=== PATIENT | male | born 1980 | race African-American/Black ===

== ENCOUNTER 2021-05-19 01:25 | Inpatient (IN) | payer MEDICAID ==
[~2021-05-19] VITALS: Ht 167.6 cm; Wt 84.9 kg
[2021-05-19] VITALS (9 sets, daily range): BP systolic 97–124; BP diastolic 52–78
[2021-05-19] MEDS ORDERED: SODIUM CHLORIDE 0.9% 1,000 ML IV ONE ×2 (02:15→04:30)
[2021-05-19 03:58] LABS: BASOPHILS % 0.2 % (0.0-2.0); CHLORIDE 109 mEq/L (98-107); EOSINOPHILS % 0.4 % (0.0-5.0); HEMATOCRIT. 22.3 % (42.0-52.0); HEMOGLOBIN. 7.2 g/dL (14.0-18.0); LYMPHOCYTES % 19.4 % (20.0-50.0); MEAN CORPUSCULAR VOLUME 83.7 fL (80.0-94.0); MEAN PLATELET VOLUME 6.6 fl (7.4-10.4); MONOCYTES % 5.9 % (2.0-8.0); NEUTROPHILS % 74.1 % (40.0-76.0); PLATELET 506 x1000/uL (130-400); RED BLOOD CELL COUNT 2.66 mill/uL (4.7-6.1); RED CELL DISTRIBUTION WIDTH 18.2 % (11.6-14.6)
[2021-05-19] MEDS ORDERED: VANCOMYCIN 1G PREMIX 200 ML IV SCH (04:30)
[2021-05-19] MEDS ORDERED: PIPERACILLIN/TAZOBACTAM 3.375GM/50ML PREMIX IV SCH (04:30)
[2021-05-19 06:28] LABS: CLARITY URINE CLOUDY (CLEAR); COLOR URINE YELLOW (YELLOW); KETONES URINE TRACE (NEGATIVE); LEUKOCYTE ESTERASE URINE 2+ (NEGATIVE); NITRITE URINE NEGATIVE (NEGATIVE); OCCULT BLOOD URINE 1+ (NEGATIVE); PROTEIN URINE 2+ (NEGATIVE); SPECIFIC GRAVITY URINE 1.022 (1.005-1.030)
[2021-05-19] MEDS ORDERED: ONDANSETRON HCL 4MG/2ML INJ IV PRN (11:15)
[2021-05-19] MEDS ORDERED: ENOXAPARIN 40MG/0.4ML SYR SUBCUT SCH (11:15)
[2021-05-19] MEDS ORDERED: DIPHENHYDRAMINE 50MG/ML VIAL IV PRN (11:15)
[2021-05-19] MEDS ORDERED: LEVOFLOXACIN 500MG PREMIX 100 ML IV SCH (11:30)
[2021-05-19] MEDS: DEXT 5%/0.45% NACL 1000ML 1,000 ML IV SCH ×2 (11:30→23:01)
[2021-05-19] MEDS ORDERED: SILO8CAP6 PO (17:32)
[2021-05-19] MEDS ORDERED: MIRT-89 PO (17:32)
[2021-05-19] MEDS ORDERED: METF-414 PO (17:32)
[2021-05-19] MEDS ORDERED: LABE200T9 PO (17:32)
[2021-05-19] MEDS ORDERED: BACL-141 PO (17:32)
[2021-05-19] MEDS ORDERED: NIFE30TA94 PO (17:32)
[2021-05-20] VITALS (15 sets, daily range): BP systolic 108–134; BP diastolic 62–78
[2021-05-20 08:18] LABS: CHLORIDE 117 mEq/L (98-107)
[2021-05-20 08:26] LABS: BASOPHILS % 0.3 % (0.0-2.0); EOSINOPHILS % 0.8 % (0.0-5.0); LYMPHOCYTES % 31.4 % (20.0-50.0); MEAN CORPUSCULAR HEMOGLOBIN 26.9 pg (28.0-32.0); MEAN CORPUSCULAR VOLUME 84.7 fL (80.0-94.0); MEAN PLATELET VOLUME 6.7 fl (7.4-10.4); MONOCYTES % 8.5 % (2.0-8.0); PLATELET 387 x1000/uL (130-400); RED BLOOD CELL COUNT 2.39 mill/uL (4.7-6.1); RED CELL DISTRIBUTION WIDTH 18.4 % (11.6-14.6)
[2021-05-20 08:32] LABS: HEMATOCRIT. 20.2 % (42.0-52.0); HEMOGLOBIN. 6.4 g/dL (14.0-18.0)
[2021-05-20] MEDS: DEXT 5%/0.45% NACL 1000ML 1,000 ML IV SCH ×2 (09:43→17:51)
[2021-05-20] MEDS ORDERED: POTASSIUM CHLORIDE INJ 40 MEQ in DEXT 5% WATER 250 ML IV ONE (10:00)
[2021-05-20] MEDS: PANTOPRAZOLE SODIUM 40 MG/VIAL IV SCH (11:30)
[2021-05-20] MEDS: KCL 20MEQ/100ML X 2 FOR TOTAL KCL 40MEQ/200ML IV SCH ×2 (13:24→17:12)
[2021-05-20] MEDS: LEVOFLOXACIN 500MG PREMIX 100 ML IV SCH (15:15)
[2021-05-20] MEDS: SODIUM HYPOCHLORITE 0.125% 473ML SOLUTION TOP SCH (20:58)
[2021-05-20 21:58] LABS: HEMATOCRIT 21.8 % (42.0-52.0); HEMOGLOBIN 7.2 g/dL (14.0-18.0)
[2021-05-21] VITALS (12 sets, daily range): BP systolic 89–158; BP diastolic 50–78
[2021-05-21] MEDS: DEXT 5%/0.45% NACL 1000ML 1,000 ML IV SCH ×3 (03:30→23:32)
[2021-05-21 06:50] LABS: BASOPHILS % 0.4 % (0.0-2.0); EOSINOPHILS % 0.4 % (0.0-5.0); HEMATOCRIT. 21.6 % (42.0-52.0); HEMOGLOBIN. 7.3 g/dL (14.0-18.0); LYMPHOCYTES % 36.7 % (20.0-50.0); MEAN CORPUSCULAR HEMOGLOBIN 28.7 pg (28.0-32.0); MEAN CORPUSCULAR VOLUME 85.5 fL (80.0-94.0); MEAN PLATELET VOLUME 6.4 fl (7.4-10.4); MONOCYTES % 7.5 % (2.0-8.0); PLATELET 292 x1000/uL (130-400); RED BLOOD CELL COUNT 2.53 mill/uL (4.7-6.1); RED CELL DISTRIBUTION WIDTH 17.9 % (11.6-14.6)
[2021-05-21 07:10] LABS: CHLORIDE 120 mEq/L (98-107)
[2021-05-21 07:24] LABS: PHOSPHORUS 2.3 mg/dL (2.5-4.9)
[2021-05-21] MEDS: PANTOPRAZOLE SODIUM 40 MG/VIAL IV SCH (09:55)
[2021-05-21] MEDS: SODIUM HYPOCHLORITE 0.125% 473ML SOLUTION TOP SCH (09:55)
[2021-05-21] MEDS ORDERED: POTASSIUM PHOS,M-BASIC-D-BASIC 20 MMOL in DEXT 5% WATER 243.3333 ML IV ONE (11:00)
[2021-05-21] MEDS: LEVOFLOXACIN 500MG PREMIX 100 ML IV SCH (11:35)
[2021-05-21] MEDS ORDERED: CEFTRIAXONE 1 G PREMIX 50 ML IV SCH (23:15)
[2021-05-21] MEDS: CEFTRIAXONE 1,000 MG in DEXTROSE 5% WATER 50 ML IV SCH (23:40)
[2021-05-22] VITALS: BP 111/75
[2021-05-22 04:00] VITALS: BP 108/78
[2021-05-22 08:00] VITALS: BP 115/77
[2021-05-22] MEDS: PANTOPRAZOLE SODIUM 40 MG/VIAL IV SCH (09:34)
[2021-05-22] MEDS: SODIUM HYPOCHLORITE 0.125% 473ML SOLUTION TOP SCH (09:34)
[2021-05-22] MEDS: DEXT 5%/0.45% NACL 1000ML 1,000 ML IV SCH ×2 (09:34→20:20)
[2021-05-22 12:00] VITALS: BP 105/71
[2021-05-22] MEDS ORDERED: POTASSIUM CHLORIDE INJ 40 MEQ in DEXT 5% WATER 500 ML IV NR (13:00)
[2021-05-22 16:00] VITALS: BP 103/68
[2021-05-22 20:00] VITALS: BP 133/82
[2021-05-22] MEDS: CEFTRIAXONE 1,000 MG in DEXTROSE 5% WATER 50 ML IV SCH (20:20)
[2021-05-23] VITALS: BP_SYST 132; BP_SYST 147; BP_DIAS 83
[2021-05-23 04:00] VITALS: BP 130/86
[2021-05-23] MEDS: DEXT 5%/0.45% NACL 1000ML 1,000 ML IV SCH (05:04)
[2021-05-23 08:00] VITALS: BP 117/71
[2021-05-23] MEDS: PANTOPRAZOLE SODIUM 40 MG/VIAL IV SCH (08:32)
[2021-05-23] MEDS: SODIUM HYPOCHLORITE 0.125% 473ML SOLUTION TOP SCH (08:32)
[2021-05-23 12:19] VITALS: BP 115/91
[2021-05-23] MEDS ORDERED: DEXT 5%/0.45% NACL 1000ML 1,000 ML IV SCH (13:48)
[2021-05-23 16:00] VITALS: BP 144/98
[2021-05-23 20:20] VITALS: BP_SYST 111; BP_SYST 143; BP_DIAS 61; BP_DIAS 81
[2021-05-23] MEDS: CEFTRIAXONE 1,000 MG in DEXTROSE 5% WATER 50 ML IV SCH (20:56)
[2021-05-24] VITALS (10 sets, daily range): BP systolic 99–131; BP diastolic 64–81
[2021-05-24] MEDS: PANTOPRAZOLE SODIUM 40 MG/VIAL IV SCH (08:20)
[2021-05-24] MEDS: ASCORBIC ACID 500 MG TABLET PO SCH (08:20)
[2021-05-24] MEDS: ZINC SULFATE 220 MG ( 50 ) CAPSULE PO SCH (08:21)
[2021-05-24] MEDS: SODIUM HYPOCHLORITE 0.125% 473ML SOLUTION TOP SCH (08:26)
[2021-05-24 11:15] LABS: BASOPHILS % 0.2 % (0.0-2.0); EOSINOPHILS % 0.3 % (0.0-5.0); MEAN CORPUSCULAR HEMOGLOBIN 28.3 pg (28.0-32.0); MEAN CORPUSCULAR VOLUME 85.5 fL (80.0-94.0); MEAN PLATELET VOLUME 6.9 fl (7.4-10.4); MONOCYTES % 4.3 % (2.0-8.0); NEUTROPHILS % 77.2 % (40.0-76.0); PLATELET 173 x1000/uL (130-400); RED BLOOD CELL COUNT 2.46 mill/uL (4.7-6.1); RED CELL DISTRIBUTION WIDTH 18.4 % (11.6-14.6)
[2021-05-24 11:35] LABS: CHLORIDE 110 mEq/L (98-107); HEMOGLOBIN. 6.9 g/dL (14.0-18.0)
[2021-05-24 11:41] LABS: TOTAL IRON BINDING CAPACITY 101 ug/dL (250-450)
[2021-05-24] MEDS ORDERED: IRON SUCROSE COMPLEX 100 MG/5 ML ML IV SCH (15:00)
[2021-05-24] MEDS: ACETAMINOPHEN 325MG TABLET PO PRN (15:56)
[2021-05-25] VITALS (11 sets, daily range): BP systolic 98–131; BP diastolic 63–76
[2021-05-25] MEDS: CEFTRIAXONE 1,000 MG in DEXTROSE 5% WATER 50 ML IV SCH ×2 (00:33→21:47)
[2021-05-25] MEDS: ASCORBIC ACID 500 MG TABLET PO SCH (09:40)
[2021-05-25] MEDS: PANTOPRAZOLE SODIUM 40 MG/VIAL IV SCH (09:40)
[2021-05-25] MEDS: ZINC SULFATE 220 MG ( 50 ) CAPSULE PO SCH (09:40)
[2021-05-25] MEDS: SODIUM HYPOCHLORITE 0.125% 473ML SOLUTION TOP SCH (09:40)
[2021-05-25 09:56] LABS: BASOPHILS % 0.3 % (0.0-2.0); EOSINOPHILS % 1.3 % (0.0-5.0); HEMATOCRIT. 25.2 % (42.0-52.0); HEMOGLOBIN. 8.4 g/dL (14.0-18.0); LYMPHOCYTES % 35.8 % (20.0-50.0); MEAN CORPUSCULAR HEMOGLOBIN 28.7 pg (28.0-32.0); MEAN PLATELET VOLUME 7.2 fl (7.4-10.4); MONOCYTES % 7.1 % (2.0-8.0); NEUTROPHILS % 55.5 % (40.0-76.0); PLATELET 151 x1000/uL (130-400); RED BLOOD CELL COUNT 2.93 mill/uL (4.7-6.1); RED CELL DISTRIBUTION WIDTH 17.7 % (11.6-14.6)
[2021-05-25] MEDS ORDERED: SODIUM CHLORIDE 0.9% 500 ML IV ONE (23:15)
[2021-05-26] VITALS: BP 110/73
[2021-05-26] MEDS: ACETAMINOPHEN 325MG TABLET PO PRN (00:30)
[2021-05-26] MEDS: SODIUM CHLORIDE 0.9% 1,000 ML IV SCH ×3 (00:31→21:20)
[2021-05-26 04:00] VITALS: BP 105/70
[2021-05-26 08:00] VITALS: BP 115/78
[2021-05-26] MEDS: ASCORBIC ACID 500 MG TABLET PO SCH (08:23)
[2021-05-26] MEDS: SODIUM HYPOCHLORITE 0.125% 473ML SOLUTION TOP SCH (08:23)
[2021-05-26] MEDS: PANTOPRAZOLE SODIUM 40 MG/VIAL IV SCH (08:23)
[2021-05-26] MEDS: ZINC SULFATE 220 MG ( 50 ) CAPSULE PO SCH (08:23)
[2021-05-26 12:00] VITALS: BP 111/69
[2021-05-26] MEDS ORDERED: IRON SUCROSE COMPLEX 100 MG/5 ML ML IV NR (14:45)
[2021-05-26 16:00] VITALS: BP 113/73
[2021-05-26 20:00] VITALS: BP 91/51
[2021-05-27] VITALS: BP 108/67
[2021-05-27 04:00] VITALS: BP 102/71
[2021-05-27] MEDS: SODIUM CHLORIDE 0.9% 1,000 ML IV SCH ×2 (06:35→16:22)
[2021-05-27 08:00] VITALS: BP 108/66
[2021-05-27] MEDS: ASCORBIC ACID 500 MG TABLET PO SCH (08:39)
[2021-05-27] MEDS: ZINC SULFATE 220 MG ( 50 ) CAPSULE PO SCH (08:39)
[2021-05-27] MEDS: PANTOPRAZOLE SODIUM 40 MG/VIAL IV SCH (08:39)
[2021-05-27] MEDS: SODIUM HYPOCHLORITE 0.125% 473ML SOLUTION TOP SCH (08:39)
[2021-05-27 12:00] VITALS: BP 108/69
[2021-05-27 16:00] VITALS: BP 115/69
[2021-05-27 20:00] VITALS: BP 121/74
[2021-05-28] VITALS: BP 114/74
[2021-05-28 04:00] VITALS: BP 119/68
[2021-05-28] MEDS: SODIUM CHLORIDE 0.9% 1,000 ML IV SCH ×3 (04:36→22:16)
[2021-05-28 08:00] VITALS: BP 103/66
[2021-05-28] MEDS: ZINC SULFATE 220 MG ( 50 ) CAPSULE PO SCH (09:18)
[2021-05-28] MEDS: ASCORBIC ACID 500 MG TABLET PO SCH (09:18)
[2021-05-28] MEDS: SODIUM HYPOCHLORITE 0.125% 473ML SOLUTION TOP SCH (09:19)
[2021-05-28] MEDS: PANTOPRAZOLE SODIUM 40 MG/VIAL IV SCH (09:30)
[2021-05-28 12:00] VITALS: BP 122/77
[2021-05-28 16:00] VITALS: BP 107/62
[2021-05-28 20:00] VITALS: BP 117/76
[2021-05-29] VITALS: BP 126/80
[2021-05-29 04:00] VITALS: BP 105/68
[2021-05-29] MEDS: SODIUM CHLORIDE 0.9% 1,000 ML IV SCH ×2 (06:05→20:37)
[2021-05-29 08:00] VITALS: BP 111/71
[2021-05-29] MEDS: ASCORBIC ACID 500 MG TABLET PO SCH (08:24)
[2021-05-29] MEDS: ZINC SULFATE 220 MG ( 50 ) CAPSULE PO SCH (08:24)
[2021-05-29] MEDS: PANTOPRAZOLE SODIUM 40 MG/VIAL IV SCH (08:24)
[2021-05-29] MEDS: SODIUM HYPOCHLORITE 0.125% 473ML SOLUTION TOP SCH (08:24)
[2021-05-29 12:00] VITALS: BP 114/63
[2021-05-29 16:00] VITALS: BP 124/75
[2021-05-29 20:15] VITALS: BP 128/78
[2021-05-30 00:28] VITALS: BP 120/78
[2021-05-30] MEDS: SODIUM CHLORIDE 0.9% 1,000 ML IV SCH ×2 (03:26→18:14)
[2021-05-30 04:47] VITALS: BP 113/69
[2021-05-30 08:00] VITALS: BP 107/67
[2021-05-30] MEDS: ZINC SULFATE 220 MG ( 50 ) CAPSULE PO SCH (09:14)
[2021-05-30] MEDS: ASCORBIC ACID 500 MG TABLET PO SCH (09:14)
[2021-05-30] MEDS: PANTOPRAZOLE SODIUM 40 MG/VIAL IV SCH (09:14)
[2021-05-30] MEDS: SODIUM HYPOCHLORITE 0.125% 473ML SOLUTION TOP SCH (09:15)
[2021-05-30 12:00] VITALS: BP 110/74
[2021-05-30 16:00] VITALS: BP 102/53
[2021-05-30 20:00] VITALS: BP 106/65
[2021-05-31] VITALS: BP 130/70
[2021-05-31] MEDS: ACETAMINOPHEN 325MG TABLET PO PRN (00:36)
[2021-05-31] MEDS: SODIUM CHLORIDE 0.9% 1,000 ML IV SCH ×3 (00:36→18:19)
[2021-05-31 04:00] VITALS: BP 103/62
[2021-05-31] MEDS: ASCORBIC ACID 500 MG TABLET PO SCH (08:18)
[2021-05-31] MEDS: ZINC SULFATE 220 MG ( 50 ) CAPSULE PO SCH (08:18)
[2021-05-31] MEDS: SODIUM HYPOCHLORITE 0.125% 473ML SOLUTION TOP SCH (08:18)
[2021-05-31] MEDS: PANTOPRAZOLE SODIUM 40 MG/VIAL IV SCH (08:18)
[2021-05-31 12:00] VITALS: BP 103/62
[2021-05-31 16:00] VITALS: BP 109/71
[2021-05-31 20:00] VITALS: BP 112/64
[2021-06-01] VITALS (7 sets, daily range): BP systolic 100–114; BP diastolic 54–74
[2021-06-01] MEDS: SODIUM CHLORIDE 0.9% 1,000 ML IV SCH ×2 (05:05→15:33)
[2021-06-01] MEDS: ZINC SULFATE 220 MG ( 50 ) CAPSULE PO SCH (09:04)
[2021-06-01] MEDS: ASCORBIC ACID 500 MG TABLET PO SCH (09:04)
[2021-06-01] MEDS: SODIUM HYPOCHLORITE 0.125% 473ML SOLUTION TOP SCH (09:04)
[2021-06-01] MEDS: PANTOPRAZOLE SODIUM 40 MG/VIAL IV SCH (09:04)
[2021-06-01] MEDS: PROPRANOLOL HCL 10MG TABLET PO SCH ×2 (12:33→21:22)
[2021-06-02] VITALS: BP 91/52
[2021-06-02 04:00] VITALS: BP 98/54
[2021-06-02] MEDS: PROPRANOLOL HCL 10MG TABLET PO SCH ×3 (05:16→21:04)
[2021-06-02 08:00] VITALS: BP_SYST 135; BP_SYST 92; BP_DIAS 54; BP_DIAS 55
[2021-06-02] MEDS: PANTOPRAZOLE SODIUM 40 MG/VIAL IV SCH (10:50)
[2021-06-02] MEDS: ZINC SULFATE 220 MG ( 50 ) CAPSULE PO SCH (10:50)
[2021-06-02] MEDS: ASCORBIC ACID 500 MG TABLET PO SCH (10:50)
[2021-06-02] MEDS: SODIUM HYPOCHLORITE 0.125% 473ML SOLUTION TOP SCH (10:51)
[2021-06-02 12:00] VITALS: BP 102/70
[2021-06-02] MEDS: SODIUM CHLORIDE 0.9% 1,000 ML IV SCH (13:33)
[2021-06-02 16:00] VITALS: BP 107/71
[2021-06-02 20:00] VITALS: BP 148/90
[2021-06-03] VITALS: BP 116/76
[2021-06-03 04:00] VITALS: BP 103/69
[2021-06-03 08:00] VITALS: BP 97/59
[2021-06-03] MEDS: SODIUM HYPOCHLORITE 0.125% 473ML SOLUTION TOP SCH (09:00)
[2021-06-03] MEDS: ZINC SULFATE 220 MG ( 50 ) CAPSULE PO SCH (09:27)
[2021-06-03] MEDS: ASCORBIC ACID 500 MG TABLET PO SCH (09:27)
[2021-06-03] MEDS: PANTOPRAZOLE SODIUM 40 MG/VIAL IV SCH (09:27)
[2021-06-03] MEDS: SODIUM CHLORIDE 0.9% 1,000 ML IV SCH ×2 (09:52→17:04)
[2021-06-03 12:00] VITALS: BP 106/69
[2021-06-03] MEDS: PROPRANOLOL HCL 10MG TABLET PO SCH ×2 (13:01→22:00)
[2021-06-03] MEDS ORDERED: LOPERAMIDE HCL 2MG CAPSULE PO NR (15:00)
[2021-06-03 16:00] VITALS: BP 101/20
[2021-06-03 20:00] VITALS: BP 103/65
[2021-06-04] VITALS: BP 103/66
[2021-06-04 04:00] VITALS: BP 94/58
[2021-06-04] MEDS: SODIUM CHLORIDE 0.9% 1,000 ML IV SCH ×3 (05:00→23:59)
[2021-06-04] MEDS: PROPRANOLOL HCL 10MG TABLET PO SCH ×3 (06:07→22:37)
[2021-06-04 08:00] VITALS: BP 97/65
[2021-06-04] MEDS: ASCORBIC ACID 500 MG TABLET PO SCH (08:51)
[2021-06-04] MEDS: PANTOPRAZOLE SODIUM 40 MG/VIAL IV SCH (08:51)
[2021-06-04] MEDS: ZINC SULFATE 220 MG ( 50 ) CAPSULE PO SCH (08:51)
[2021-06-04 12:00] VITALS: BP 113/71
[2021-06-04 16:00] VITALS: BP 107/62
[2021-06-04 20:00] VITALS: BP 131/79
[2021-06-05 04:00] VITALS: BP 96/50
[2021-06-05] MEDS: PROPRANOLOL HCL 10MG TABLET PO SCH ×2 (06:57→20:21)
[2021-06-05 08:00] VITALS: BP 98/50
[2021-06-05] MEDS: PANTOPRAZOLE SODIUM 40 MG/VIAL IV SCH (09:17)
[2021-06-05] MEDS: ASCORBIC ACID 500 MG TABLET PO SCH (09:17)
[2021-06-05] MEDS: SODIUM CHLORIDE 0.9% 1,000 ML IV SCH ×2 (09:17→19:59)
[2021-06-05] MEDS: ZINC SULFATE 220 MG ( 50 ) CAPSULE PO SCH (09:17)
[2021-06-05 12:00] VITALS: BP 98/61
[2021-06-05] MEDS ORDERED: LOPERAMIDE HCL 2MG CAPSULE PO PRN (14:45)
[2021-06-05 16:00] VITALS: BP 100/55
[2021-06-05 20:00] VITALS: BP 117/67
[2021-06-06] VITALS (8 sets, daily range): BP systolic 98–121; BP diastolic 57–80
[2021-06-06] MEDS: ZINC SULFATE 220 MG ( 50 ) CAPSULE PO SCH (08:56)
[2021-06-06] MEDS: SODIUM HYPOCHLORITE 0.125% 473ML SOLUTION TOP SCH ×2 (08:58→17:00)
[2021-06-06] MEDS: PROPRANOLOL HCL 10MG TABLET PO SCH (08:58)
[2021-06-06] MEDS: ASCORBIC ACID 500 MG TABLET PO SCH (08:58)
[2021-06-06 16:36] LABS: BASOPHILS % 0.3 % (0.0-2.0); EOSINOPHILS % 0.6 % (0.0-5.0); LYMPHOCYTES % 16.9 % (20.0-50.0); MEAN CORPUSCULAR HEMOGLOBIN 29.5 pg (28.0-32.0); MEAN CORPUSCULAR VOLUME 95.6 fL (80.0-94.0); MEAN PLATELET VOLUME 7.3 fl (7.4-10.4); MONOCYTES % 4.6 % (2.0-8.0); NEUTROPHILS % 77.6 % (40.0-76.0); PLATELET 205 x1000/uL (130-400); RED BLOOD CELL COUNT 2.13 mill/uL (4.7-6.1)
[2021-06-06 16:41] LABS: HEMATOCRIT. 20.4 % (42.0-52.0); HEMOGLOBIN. 6.3 g/dL (14.0-18.0)
[2021-06-06 16:47] LABS: CHLORIDE 114 mEq/L (98-107)
[2021-06-06] MEDS: SODIUM CHLORIDE 0.9% 1,000 ML IV SCH (16:59)
[2021-06-06] MEDS ORDERED: POTASSIUM CHLORIDE 20MEQ/PACKET PO NR (18:00)
[2021-06-06 18:48] LABS: TOTAL IRON BINDING CAPACITY 48 ug/dL (250-450)
[2021-06-06] MEDS: PANTOPRAZOLE SODIUM 40 MG/VIAL IV SCH (19:41)
[2021-06-07] VITALS (11 sets, daily range): BP systolic 97–134; BP diastolic 66–83
[2021-06-07] MEDS: SODIUM CHLORIDE 0.9% 1,000 ML IV SCH ×2 (01:59→11:59)
[2021-06-07 04:00] LABS: INR 1.4; PROTHROMBIN TIME 15.1 sec (9.6-11.0)
[2021-06-07] MEDS: SODIUM HYPOCHLORITE 0.125% 473ML SOLUTION TOP SCH ×3 (10:33→17:17)
[2021-06-07] MEDS: PANTOPRAZOLE SODIUM 40 MG/VIAL IV SCH (10:34)
[2021-06-07] MEDS: ZINC SULFATE 220 MG ( 50 ) CAPSULE PO SCH (10:34)
[2021-06-07] MEDS: ASCORBIC ACID 500 MG TABLET PO SCH (10:34)
[2021-06-07 11:55] LABS: HEMATOCRIT 23.3 % (42.0-52.0); HEMOGLOBIN 7.3 g/dL (14.0-18.0); MEAN CORPUSCULAR HEMOGLOBIN 29.3 pg (28.0-32.0); MEAN CORPUSCULAR VOLUME 93.6 fL (80.0-94.0); PLATELET 183 x1000/uL (130-400); RED BLOOD CELL COUNT 2.49 mill/uL (4.7-6.1); RED CELL DISTRIBUTION WIDTH 18.3 % (11.6-14.6)
[2021-06-07] MEDS ORDERED: IRON SUCROSE COMPLEX 100 MG/5 ML ML IV NR (15:00)
[2021-06-07] MEDS ORDERED: DIATR MEGLU/DIATRIZOATE SOLN 30ML PO NR (16:00)
[2021-06-07] MEDS: FERROUS SULFATE 325MG TABLET PO SCH (17:16)
[2021-06-08] VITALS (7 sets, daily range): BP systolic 90–109; BP diastolic 58–72
[2021-06-08] MEDS: SODIUM CHLORIDE 0.9% 1,000 ML IV SCH ×3 (01:35→22:00)
[2021-06-08 03:24] LABS: HEMATOCRIT 22.6 % (42.0-52.0); HEMOGLOBIN 7.3 g/dL (14.0-18.0)
[2021-06-08 03:37] LABS: INR 1.4; PROTHROMBIN TIME 14.9 sec (9.6-11.0)
[2021-06-08] MEDS: ASCORBIC ACID 500 MG TABLET PO SCH (09:29)
[2021-06-08] MEDS: PANTOPRAZOLE SODIUM 40 MG/VIAL IV SCH (09:29)
[2021-06-08] MEDS: SODIUM HYPOCHLORITE 0.125% 473ML SOLUTION TOP SCH (09:29)
[2021-06-08] MEDS: ZINC SULFATE 220 MG ( 50 ) CAPSULE PO SCH (09:29)
[2021-06-08] MEDS: FERROUS SULFATE 325MG TABLET PO SCH (09:29)
[2021-06-08 13:19] LABS: BASOPHILS % 0.2 % (0.0-2.0); EOSINOPHILS % 0.6 % (0.0-5.0); HEMATOCRIT. 24.2 % (42.0-52.0); HEMOGLOBIN. 7.9 g/dL (14.0-18.0); LYMPHOCYTES % 25.2 % (20.0-50.0); MEAN CORPUSCULAR HEMOGLOBIN 30.1 pg (28.0-32.0); MEAN CORPUSCULAR VOLUME 92.4 fL (80.0-94.0); MEAN PLATELET VOLUME 7.4 fl (7.4-10.4); MONOCYTES % 5.4 % (2.0-8.0); NEUTROPHILS % 68.6 % (40.0-76.0); PLATELET 210 x1000/uL (130-400); RED BLOOD CELL COUNT 2.62 mill/uL (4.7-6.1)
[2021-06-08] MEDS ORDERED: CEFEPIME 2,000 MG in DEXT 5% WATER 100 ML IV SCH (15:30)
[2021-06-08] MEDS ORDERED: VANCOMYCIN 1GM PMX (XELLIA) 200 ML IV NR ×2 (15:30→20:00)
[2021-06-08] MEDS ORDERED: PROPOFOL 200MG/20ML VIAL IV ONE (15:32)
[2021-06-08] MEDS ORDERED: MIDAZOLAM HCL 2 MG/2 ML VIAL ONE (15:46)
[2021-06-08] MEDS ORDERED: CEFAZOLIN SODIUM 1000MG/VIAL ONE (15:50)
[2021-06-08] MEDS ORDERED: DEXAMETHASONE 4MG/ML 1ML VIAL ONE (15:50)
[2021-06-08] MEDS ORDERED: ONDANSETRON HCL 4MG/2ML INJ ONE (15:50)
[2021-06-08] MEDS ORDERED: LIDOCAINE HCL 1% 10 MG/ML 10ML VIAL ONE (15:50)
[2021-06-08] MEDS ORDERED: SUCCINYLCHOLINE CHLORIDE 200MG/10ML IV ONE (15:50)
[2021-06-08] MEDS ORDERED: FENTANYL CITRATE/PF 50MCG/ML 2ML VIAL ONE (15:51)
[2021-06-08] MEDS ORDERED: FENTANYL CITRATE/PF 50MCG/ML 2ML VIAL IV PRN (15:51)
[2021-06-08] MEDS: CEFEPIME 2,000 MG in DEXT 5% WATER 100 ML IV SCH ×2 (18:24→22:10)
[2021-06-08] MEDS ORDERED: SODIUM CHLORIDE 0.9% 500 ML IV ONE (18:47)
[2021-06-08] MEDS ORDERED: SODIUM CHLORIDE 0.9% 500 ML IV NR (19:00)
[2021-06-09] VITALS (12 sets, daily range): BP systolic 95–131; BP diastolic 64–95
[2021-06-09] MEDS ORDERED: VANCOMYCIN 750MG PMX (XELLIA) 150 ML IV SCH
[2021-06-09] MEDS: SODIUM CHLORIDE 0.9% 1,000 ML IV SCH ×2 (03:59→13:53)
[2021-06-09] MEDS: VANCOMYCIN 750MG PMX (XELLIA) 150 ML IV SCH ×3 (05:51→21:14)
[2021-06-09] MEDS: PANTOPRAZOLE SODIUM 40 MG/VIAL IV SCH (08:32)
[2021-06-09] MEDS: ZINC SULFATE 220 MG ( 50 ) CAPSULE PO SCH (08:32)
[2021-06-09] MEDS: ASCORBIC ACID 500 MG TABLET PO SCH (08:32)
[2021-06-09] MEDS: FERROUS SULFATE 325MG TABLET PO SCH ×3 (08:32→18:51)
[2021-06-09] MEDS: CEFEPIME 2,000 MG in DEXT 5% WATER 100 ML IV SCH ×2 (08:32→20:12)
[2021-06-09] MEDS: SODIUM HYPOCHLORITE 0.125% 473ML SOLUTION TOP SCH ×3 (08:33→18:51)
[2021-06-09 12:39] LABS: BASOPHILS % 0.2 % (0.0-2.0); EOSINOPHILS % 0.6 % (0.0-5.0); HEMOGLOBIN. 8.6 g/dL (14.0-18.0); LYMPHOCYTES % 18.2 % (20.0-50.0); MEAN CORPUSCULAR HEMOGLOBIN 29.1 pg (28.0-32.0); MEAN CORPUSCULAR VOLUME 91.4 fL (80.0-94.0); MEAN PLATELET VOLUME 7.9 fl (7.4-10.4); MONOCYTES % 2.9 % (2.0-8.0); NEUTROPHILS % 78.1 % (40.0-76.0); PLATELET 184 x1000/uL (130-400); RED BLOOD CELL COUNT 2.96 mill/uL (4.7-6.1)
[2021-06-09 12:41] LABS: CHLORIDE 115 mEq/L (98-107)
[2021-06-09 12:48] LABS: PHOSPHORUS 2.1 mg/dL (2.5-4.9)
[2021-06-09] MEDS: ACETAMINOPHEN 325MG TABLET PO PRN (13:52)
[2021-06-09] MEDS ORDERED: MAGNESIUM 2 G PREMIX 50 ML IV NR (17:00)
[2021-06-09] MEDS ORDERED: POTASSIUM PHOS,M-BASIC-D-BASIC 20 MMOL in DEXT 5% WATER 243.3333 ML IV NR (17:00)
[2021-06-10] VITALS (12 sets, daily range): BP systolic 123–172; BP diastolic 67–107
[2021-06-10] MEDS: VANCOMYCIN 750MG PMX (XELLIA) 150 ML IV SCH (05:40)
[2021-06-10 06:20] LABS: CHLORIDE 115 mEq/L (98-107)
[2021-06-10 06:28] LABS: PHOSPHORUS 2.7 mg/dL (2.5-4.9)
[2021-06-10] MEDS: MEGESTROL ACETATE 400 MG/10 ML UDC PO SCH ×2 (09:24→18:23)
[2021-06-10] MEDS: SODIUM HYPOCHLORITE 0.125% 473ML SOLUTION TOP SCH ×3 (09:24→18:22)
[2021-06-10] MEDS: FERROUS SULFATE 325MG TABLET PO SCH ×3 (09:25→18:23)
[2021-06-10] MEDS: PANTOPRAZOLE SODIUM 40 MG/VIAL IV SCH (09:25)
[2021-06-10] MEDS: ASCORBIC ACID 500 MG TABLET PO SCH (09:25)
[2021-06-10] MEDS: CEFEPIME 2,000 MG in DEXT 5% WATER 100 ML IV SCH ×2 (09:25→20:11)
[2021-06-10] MEDS: ZINC SULFATE 220 MG ( 50 ) CAPSULE PO SCH (09:27)
[2021-06-10] MEDS: SODIUM CHLORIDE 0.9% 1,000 ML IV SCH ×2 (15:46)
[2021-06-10] MEDS: METOPROLOL TARTRATE 25MG TABLET PO SCH (20:10)
[2021-06-10] MEDS ORDERED: FUROSEMIDE 40MG/4ML VIAL IVP NR (21:30)
[2021-06-10] MEDS ORDERED: IOHEXOL-350 100 ML BOTTLE ONE (21:52)
[2021-06-11] VITALS (62 sets, daily range): BP systolic 49–156; BP diastolic 17–96
[2021-06-11] MEDS ORDERED: ENOXAPARIN 60MG/0.6ML SYR SUBCUT SCH (00:30)
[2021-06-11] MEDS: VANCOMYCIN 1GM PMX (XELLIA) 200 ML IV SCH ×2 (01:17→21:17)
[2021-06-11] MEDS: FERROUS SULFATE 325MG TABLET PO SCH ×3 (07:52→18:26)
[2021-06-11] MEDS: PANTOPRAZOLE SODIUM 40 MG/VIAL IV SCH (08:57)
[2021-06-11] MEDS: CEFEPIME 2,000 MG in DEXT 5% WATER 100 ML IV SCH ×2 (08:57→20:32)
[2021-06-11] MEDS: METOPROLOL TARTRATE 25MG TABLET PO SCH ×2 (08:58→21:26)
[2021-06-11] MEDS: ZINC SULFATE 220 MG ( 50 ) CAPSULE PO SCH (08:58)
[2021-06-11] MEDS: MEGESTROL ACETATE 400 MG/10 ML UDC PO SCH ×2 (09:00→18:26)
[2021-06-11] MEDS ORDERED: SODIUM CHLORIDE 0.9% 500 ML IV SCH (09:15)
[2021-06-11] MEDS ORDERED: VECURONIUM BROMIDE 10 MG/VIAL IV ONE (09:19)
[2021-06-11] MEDS ORDERED: ETOMIDATE 2MG/ML 10ML VIAL IV ONE (09:19)
[2021-06-11] MEDS ORDERED: SODIUM CHLORIDE 0.9% 10ML VIAL ONE (09:19)
[2021-06-11] MEDS ORDERED: SUCCINYLCHOLINE CHLORIDE 200MG/10ML IV ONE (09:19)
[2021-06-11] MEDS: SODIUM HYPOCHLORITE 0.125% 473ML SOLUTION TOP SCH ×3 (09:20→18:26)
[2021-06-11] MEDS: SODIUM CHLORIDE 0.9% 1,000 ML IV SCH (09:20)
[2021-06-11] MEDS: ASCORBIC ACID 500 MG TABLET PO SCH (09:20)
[2021-06-11 10:01] LABS: BG BASE EXCESS -14.8 mmol/L (-2.0-2.0); BG CARBOXYHEMOGLOBIN 0.1 % (0.5-1.5); BG DEOXYHEMOGLOBIN 4.1 % (0.0-5.0); BG FRACTION INSPIRED OXYGEN 40; BG HCO3 ACT 9.5 mmol/L (22.0-26.0); BG METHEMOGLOBIN 0.2 % (0.0-1.5); BG OXYGEN SATURATION 95.9 % (92.0-98.5); BG OXYHEMOGLOBIN 95.6 % (94.0-97.0); BG PCO2 19.1 mmHg (35.0-45.0); BG PH 7.316 (7.350-7.450); BG PO2 91.6 mmHg (75.0-100.0); BG SAMPLE SITE RIGHT RADIAL; BG TOTAL HEMOGLOBIN 9.2 g/dL (12.0-18.0); BG TOTAL RESPIRATORY RATE 29 b/min; BG VENT MODE MASK - BIPAP
[2021-06-11] MEDS: IPRATROPIUM/ALBUTEROL 0.5-3(2.5)MG/3ML NEB HHN PRN ×2 (12:41→14:01)
[2021-06-11] MEDS: SODIUM BICARBONATE 100 MEQ in SODIUM CHLORIDE 0.45% 1,000 ML IV SCH (13:00)
[2021-06-11] MEDS ORDERED: ACETYLCYSTEINE 100MG/ML 10% VIAL 4ML INH ONE (14:00)
[2021-06-11] MEDS: ACETYLCYSTEINE 100MG/ML 10% VIAL 4ML INH SCH (14:00)
[2021-06-11] MEDS ORDERED: NOREPINEPHRINE 8MG/250ML PMX 250 ML IV ONE (15:15)
[2021-06-11] MEDS ORDERED: PROPOFOL 10MG/ML 100ML 100 ML IV PRN (16:15)
[2021-06-11] MEDS: NOREPINEPHRINE 8 MG in DEXTROSE 5% WATER 250 ML IV PRN ×2 (16:31→19:12)
[2021-06-11] MEDS: FENTANYL 2500MCG/250ML PMX 250 ML IV PRN (16:52)
[2021-06-11 17:42] LABS: BG BASE EXCESS -21.1 mmol/L (-2.0-2.0); BG CARBOXYHEMOGLOBIN 0.7 % (0.5-1.5); BG DEOXYHEMOGLOBIN 3.8 % (0.0-5.0); BG FRACTION INSPIRED OXYGEN 100; BG HCO3 ACT 11.5 mmol/L (22.0-26.0); BG METHEMOGLOBIN 0.3 % (0.0-1.5); BG OXYGEN SATURATION 96.2 % (92.0-98.5); BG OXYHEMOGLOBIN 95.2 % (94.0-97.0); BG PCO2 59.7 mmHg (35.0-45.0); BG PH 6.901 (7.350-7.450); BG PO2 136.9 mmHg (75.0-100.0); BG SAMPLE SITE RIGHT RADIAL; BG TOTAL HEMOGLOBIN 10.8 g/dL (12.0-18.0); BG VENT MODE VENT - AC
[2021-06-11] MEDS: IPRATROPIUM/ALBUTEROL 0.5-3(2.5)MG/3ML NEB HHN SCH ×2 (18:08→20:00)
[2021-06-11] MEDS ORDERED: SODIUM BICARBONATE 8.4% 1 MEQ/ML 50ML SYR IV SCH (18:15)
[2021-06-11 20:43] LABS: BG BASE EXCESS -14.5 mmol/L (-2.0-2.0); BG CARBOXYHEMOGLOBIN 0.4 % (0.5-1.5); BG DEOXYHEMOGLOBIN 3.3 % (0.0-5.0); BG FRACTION INSPIRED OXYGEN 100; BG HCO3 ACT 14.2 mmol/L (22.0-26.0); BG METHEMOGLOBIN 0.3 % (0.0-1.5); BG OXYGEN SATURATION 96.7 % (92.0-98.5); BG PCO2 45.2 mmHg (35.0-45.0); BG PH 7.116 (7.350-7.450); BG PO2 117.8 mmHg (75.0-100.0); BG SAMPLE SITE RIGHT BRACHIAL; BG TOTAL HEMOGLOBIN 10.8 g/dL (12.0-18.0); BG VENT MODE VENT - AC
[2021-06-11 22:18] LABS: BG BASE EXCESS -16.7 mmol/L (-2.0-2.0); BG CARBOXYHEMOGLOBIN 0.6 % (0.5-1.5); BG DEOXYHEMOGLOBIN 3.3 % (0.0-5.0); BG FRACTION INSPIRED OXYGEN 100; BG HCO3 ACT 11.8 mmol/L (22.0-26.0); BG METHEMOGLOBIN 0.3 % (0.0-1.5); BG OXYGEN SATURATION 96.7 % (92.0-98.5); BG OXYHEMOGLOBIN 95.8 % (94.0-97.0); BG PCO2 37.7 mmHg (35.0-45.0); BG PH 7.113 (7.350-7.450); BG PO2 119.9 mmHg (75.0-100.0); BG SAMPLE SITE RIGHT BRACHIAL; BG TOTAL HEMOGLOBIN 10.6 g/dL (12.0-18.0); BG VENT MODE VENT - AC
[2021-06-11] MEDS: NOREPINEPHRINE 32 MG in DEXT 5% WATER 218 ML IV PRN (22:23)
[2021-06-11] MEDS ORDERED: SODIUM BICARBONATE 8.4% 1 MEQ/ML 50ML SYR IV NR (22:34)
[2021-06-12] VITALS (103 sets, daily range): BP systolic 68–156; BP diastolic 41–96
[2021-06-12] MEDS: IPRATROPIUM/ALBUTEROL 0.5-3(2.5)MG/3ML NEB HHN SCH ×6 (00:26→21:11)
[2021-06-12] MEDS: ACETYLCYSTEINE 100MG/ML 10% VIAL 4ML INH SCH ×3 (00:26→15:31)
[2021-06-12 01:18] LABS: BG BASE EXCESS -12.7 mmol/L (-2.0-2.0); BG CARBOXYHEMOGLOBIN 0.4 % (0.5-1.5); BG DEOXYHEMOGLOBIN 2.5 % (0.0-5.0); BG FRACTION INSPIRED OXYGEN 100; BG METHEMOGLOBIN 0.3 % (0.0-1.5); BG OXYGEN SATURATION 97.5 % (92.0-98.5); BG OXYHEMOGLOBIN 96.8 % (94.0-97.0); BG PCO2 29.6 mmHg (35.0-45.0); BG PH 7.262 (7.350-7.450); BG PO2 131.2 mmHg (75.0-100.0); BG SAMPLE SITE RIGHT BRACHIAL; BG TOTAL HEMOGLOBIN 10.5 g/dL (12.0-18.0); BG VENT MODE VENT - AC
[2021-06-12] MEDS: METRONIDAZOLE 500 MG PREMIX 100 ML IV SCH ×3 (02:20→18:49)
[2021-06-12 06:17] LABS: HEMOGLOBIN. 10.7 g/dL (14.0-18.0); MEAN CORPUSCULAR HEMOGLOBIN 30.1 pg (28.0-32.0); MEAN CORPUSCULAR VOLUME 92.8 fL (80.0-94.0); MEAN PLATELET VOLUME 8.9 fl (7.4-10.4); PLATELET 128 x1000/uL (130-400); RED BLOOD CELL COUNT 3.55 mill/uL (4.7-6.1); RED CELL DISTRIBUTION WIDTH 18.7 % (11.6-14.6)
[2021-06-12 06:24] LABS: CHLORIDE 111 mEq/L (98-107)
[2021-06-12] MEDS: SODIUM BICARBONATE 100 MEQ in SODIUM CHLORIDE 0.45% 1,000 ML IV SCH (06:39)
[2021-06-12 08:20] LABS: BG FRACTION INSPIRED OXYGEN 80; BG HCO3 ACT 11.2 mmol/L (22.0-26.0); BG METHEMOGLOBIN 0.3 % (0.0-1.5); BG OXYHEMOGLOBIN 95.7 % (94.0-97.0); BG PCO2 24.5 mmHg (35.0-45.0); BG PH 7.277 (7.350-7.450); BG PO2 100.3 mmHg (75.0-100.0); BG SAMPLE SITE LEFT RADIAL; BG TOTAL HEMOGLOBIN 10.3 g/dL (12.0-18.0); BG VENT MODE VENT - AC
[2021-06-12] MEDS: FERROUS SULFATE 325MG TABLET PO SCH ×3 (08:20→18:49)
[2021-06-12] MEDS: SODIUM HYPOCHLORITE 0.125% 473ML SOLUTION TOP SCH ×2 (09:00→12:55)
[2021-06-12] MEDS: ZINC SULFATE 220 MG ( 50 ) CAPSULE PO SCH (09:00)
[2021-06-12] MEDS: PANTOPRAZOLE SODIUM 40 MG/VIAL IV SCH (09:00)
[2021-06-12] MEDS: ASCORBIC ACID 500 MG TABLET PO SCH (09:00)
[2021-06-12] MEDS: METOPROLOL TARTRATE 25MG TABLET PO SCH ×2 (09:00→21:00)
[2021-06-12] MEDS: CEFEPIME 2,000 MG in DEXT 5% WATER 100 ML IV SCH ×2 (09:00→21:46)
[2021-06-12] MEDS: NOREPINEPHRINE 32 MG in DEXT 5% WATER 218 ML IV PRN ×2 (10:51→19:26)
[2021-06-12] MEDS ORDERED: SODIUM BICARBONATE 8.4% 1 MEQ/ML 50ML SYR IV SCH (11:15)
[2021-06-12] MEDS ORDERED: SODIUM BICARBONATE 8.4% 1 MEQ/ML 50ML SYR IV NR (12:00)
[2021-06-12 12:26] LABS: NUCLEATED RED BLOOD CELLS 1 /100 WBC
[2021-06-12 12:28] LABS: PLATELET ESTIMATE SLIGHTLY DECREASED
[2021-06-12] MEDS: SODIUM BICARBONATE 150 MEQ in SODIUM CHLORIDE 0.45% 1,000 ML IV SCH (13:53)
[2021-06-12] MEDS ORDERED: FUROSEMIDE 40MG/4ML VIAL IVP NR (15:00)
[2021-06-12] MEDS ORDERED: SODIUM HYPOCHLORITE 0.125% 473ML SOLUTION TOP SCH (16:00)
[2021-06-13] VITALS (93 sets, daily range): BP systolic 75–150; BP diastolic 31–93
[2021-06-13] MEDS: ACETYLCYSTEINE 100MG/ML 10% VIAL 4ML INH SCH ×2 (00:03→09:05)
[2021-06-13] MEDS: IPRATROPIUM/ALBUTEROL 0.5-3(2.5)MG/3ML NEB HHN SCH ×5 (00:03→20:13)
[2021-06-13] MEDS: NOREPINEPHRINE 32 MG in DEXT 5% WATER 218 ML IV PRN ×4 (02:06→22:58)
[2021-06-13] MEDS: METRONIDAZOLE 500 MG PREMIX 100 ML IV SCH ×3 (02:08→17:37)
[2021-06-13] MEDS: SODIUM BICARBONATE 150 MEQ in SODIUM CHLORIDE 0.45% 1,000 ML IV SCH (07:36)
[2021-06-13] MEDS: CEFEPIME 2,000 MG in DEXT 5% WATER 100 ML IV SCH ×2 (08:21→21:20)
[2021-06-13] MEDS: METOPROLOL TARTRATE 25MG TABLET PO SCH ×2 (08:38→21:00)
[2021-06-13] MEDS: PANTOPRAZOLE SODIUM 40 MG/VIAL IV SCH (08:38)
[2021-06-13] MEDS: ASCORBIC ACID 500 MG TABLET PO SCH (08:38)
[2021-06-13] MEDS: FERROUS SULFATE 325MG TABLET PO SCH ×3 (08:38→17:37)
[2021-06-13] MEDS: ZINC SULFATE 220 MG ( 50 ) CAPSULE PO SCH (08:38)
[2021-06-13] MEDS ORDERED: VANCOMYCIN 1GM PMX (XELLIA) 200 ML IV SCH (09:00)
[2021-06-13 09:06] LABS: CHLORIDE 112 mEq/L (98-107)
[2021-06-13 09:30] LABS: BG CARBOXYHEMOGLOBIN 0.2 % (0.5-1.5); BG FRACTION INSPIRED OXYGEN 80; BG HCO3 ACT 8.4 mmol/L (22.0-26.0); BG METHEMOGLOBIN 0.3 % (0.0-1.5); BG OXYHEMOGLOBIN 97.5 % (94.0-97.0); BG PCO2 19.5 mmHg (35.0-45.0); BG PH 7.251 (7.350-7.450); BG PO2 233.4 mmHg (75.0-100.0); BG SAMPLE SITE RIGHT RADIAL; BG TOTAL HEMOGLOBIN 9.6 g/dL (12.0-18.0); BG VENT MODE VENT - AC
[2021-06-13] MEDS: DEXTROSE 50% WATER 50ML SYRINGE IV NR ×4 (09:59→17:40)
[2021-06-13] MEDS ORDERED: SODIUM BICARBONATE 8.4% 1 MEQ/ML 50ML SYR IV NR (10:00)
[2021-06-13] MEDS: SODIUM BICARBONATE 150 MEQ in DEXTROSE 5% WATER 1,000 ML IV SCH (12:41)
[2021-06-13] MEDS: METOCLOPRAMIDE HCL 10MG/2ML VIAL IV SCH (17:37)
[2021-06-13] MEDS: FENTANYL 2500MCG/250ML PMX 250 ML IV PRN (18:18)
[2021-06-13] MEDS ORDERED: DEXTROSE 50% WATER 50ML SYRINGE IV PRN ×2 (20:30)
[2021-06-13] MEDS: DEXT 10% WATER 1,000 ML IV SCH (20:40)
[2021-06-14] VITALS (123 sets, daily range): BP systolic 67–166; BP diastolic 27–103
[2021-06-14] MEDS: IPRATROPIUM/ALBUTEROL 0.5-3(2.5)MG/3ML NEB HHN SCH ×6 (00:11→20:54)
[2021-06-14] MEDS: ACETYLCYSTEINE 100MG/ML 10% VIAL 4ML INH SCH ×3 (00:11→15:28)
[2021-06-14] MEDS: METOCLOPRAMIDE HCL 10MG/2ML VIAL IV SCH ×4 (00:21→18:35)
[2021-06-14] MEDS: METRONIDAZOLE 500 MG PREMIX 100 ML IV SCH ×3 (02:01→18:35)
[2021-06-14] MEDS: NOREPINEPHRINE 32 MG in DEXT 5% WATER 218 ML IV PRN ×4 (03:07→23:08)
[2021-06-14] MEDS: SODIUM BICARBONATE 150 MEQ in DEXTROSE 5% WATER 1,000 ML IV SCH ×3 (04:40→23:07)
[2021-06-14 06:33] LABS: CHLORIDE 108 mEq/L (98-107)
[2021-06-14 06:40] LABS: PHOSPHORUS 5.3 mg/dL (2.5-4.9)
[2021-06-14] MEDS: FERROUS SULFATE 325MG TABLET PO SCH ×3 (08:20→18:20)
[2021-06-14] MEDS: ZINC SULFATE 220 MG ( 50 ) CAPSULE PO SCH (09:00)
[2021-06-14] MEDS: METOPROLOL TARTRATE 25MG TABLET PO SCH ×2 (09:00→21:00)
[2021-06-14] MEDS: ASCORBIC ACID 500 MG TABLET PO SCH (09:00)
[2021-06-14] MEDS: CEFEPIME 2,000 MG in DEXT 5% WATER 100 ML IV SCH ×2 (09:26→21:41)
[2021-06-14] MEDS: PANTOPRAZOLE SODIUM 40 MG/VIAL IV SCH (09:26)
[2021-06-14] MEDS: MIDAZOLAM HCL 100 MG in SODIUM CHLORIDE 0.9% 80 ML IV PRN (09:27)
[2021-06-14 09:48] LABS: BG BASE EXCESS -28.5 mmol/L (-2.0-2.0); BG CARBOXYHEMOGLOBIN 0.5 % (0.5-1.5); BG DEOXYHEMOGLOBIN 2.5 % (0.0-5.0); BG FRACTION INSPIRED OXYGEN 70; BG HCO3 ACT 3.4 mmol/L (22.0-26.0); BG METHEMOGLOBIN 0.3 % (0.0-1.5); BG OXYGEN SATURATION 97.5 % (92.0-98.5); BG OXYHEMOGLOBIN 96.7 % (94.0-97.0); BG PH 6.844 (7.350-7.450); BG PO2 150.7 mmHg (75.0-100.0); BG SAMPLE SITE RIGHT RADIAL; BG VENT MODE VENT - AC
[2021-06-14] MEDS ORDERED: SODIUM BICARBONATE 8.4% 1 MEQ/ML 50ML SYR IV SCH (10:15)
[2021-06-14 10:25] LABS: CREATINE KINASE 92 IU/L (39-308)
[2021-06-14] MEDS ORDERED: LIDOCAINE HCL 1% 10 MG/ML 10ML VIAL ONE (10:32)
[2021-06-14] MEDS ORDERED: ALBUMIN HUMAN 25GM/100ML (25%) IV SCH (11:00)
[2021-06-14] MEDS: PHENYLEPHRINE 100 MG in DEXT 5% WATER 240 ML IV PRN ×2 (11:09→23:53)
[2021-06-14] MEDS: BLOOD SUGAR DIAGNOSTIC STRIP TEST SCH ×3 (12:40→20:00)
[2021-06-14 13:36] LABS: BG BASE EXCESS -23.3 mmol/L (-2.0-2.0); BG CARBOXYHEMOGLOBIN 0.8 % (0.5-1.5); BG DEOXYHEMOGLOBIN 9.2 % (0.0-5.0); BG FRACTION INSPIRED OXYGEN 60; BG HCO3 ACT 6.4 mmol/L (22.0-26.0); BG METHEMOGLOBIN 0.4 % (0.0-1.5); BG OXYGEN SATURATION 90.7 % (92.0-98.5); BG OXYHEMOGLOBIN 89.6 % (94.0-97.0); BG PCO2 27.1 mmHg (35.0-45.0); BG PH 6.988 (7.350-7.450); BG PO2 77.8 mmHg (75.0-100.0); BG SAMPLE SITE RIGHT RADIAL; BG TOTAL HEMOGLOBIN 7.2 g/dL (12.0-18.0); BG VENT MODE VENT - AC
[2021-06-14 15:00] LABS: HEMATOCRIT. 24.6 % (42.0-52.0); MEAN CORPUSCULAR HEMOGLOBIN 28.3 pg (28.0-32.0); MEAN CORPUSCULAR VOLUME 104.1 fL (80.0-94.0); MEAN PLATELET VOLUME 12.7 fl (7.4-10.4); RED BLOOD CELL COUNT 2.36 mill/uL (4.7-6.1); RED CELL DISTRIBUTION WIDTH 21.7 % (11.6-14.6)
[2021-06-14] MEDS: VASOPRESSIN 20 UNIT in SODIUM CHLORIDE 0.9% 99 ML IV PRN ×2 (15:40→21:53)
[2021-06-14] MEDS: DOPAMINE 400MG/250ML PREMIX 250 ML IV PRN ×3 (15:50→23:17)
[2021-06-14 16:02] LABS: HEMOGLOBIN. 6.7 g/dL (14.0-18.0); PLATELET 29 x1000/uL (130-400)
[2021-06-14] MEDS: EPINEPHRINE 10 MG in SODIUM CHLORIDE 0.9% 240 ML IV PRN ×3 (16:40→23:06)
[2021-06-14 16:51] LABS: NUCLEATED RED BLOOD CELLS 10 /100 WBC; PLATELET ESTIMATE MARKEDLY DECREASED
[2021-06-14 17:18] LABS: HEPATITIS B SURFACE ANTIGEN NEGATIVE
[2021-06-14 18:53] LABS: BG BASE EXCESS -21.1 mmol/L (-2.0-2.0); BG DEOXYHEMOGLOBIN 14.6 % (0.0-5.0); BG FRACTION INSPIRED OXYGEN 60; BG HCO3 ACT 8.9 mmol/L (22.0-26.0); BG OXYGEN SATURATION 85.3 % (92.0-98.5); BG OXYHEMOGLOBIN 84.4 % (94.0-97.0); BG PCO2 37.1 mmHg (35.0-45.0); BG PH 6.999 (7.350-7.450); BG PO2 62.3 mmHg (75.0-100.0); BG SAMPLE SITE RIGHT RADIAL; BG TOTAL HEMOGLOBIN 9.4 g/dL (12.0-18.0); BG VENT MODE VENT - AC
[2021-06-14] MEDS: DEXT 10% WATER 1,000 ML IV SCH (21:18)
[2021-06-14 23:37] LABS: HEMATOCRIT 27.4 % (42.0-52.0); HEMOGLOBIN 8.1 g/dL (14.0-18.0)
[2021-06-14 23:41] LABS: BG BASE EXCESS -25.6 mmol/L (-2.0-2.0); BG CARBOXYHEMOGLOBIN 0.4 % (0.5-1.5); BG FRACTION INSPIRED OXYGEN 80; BG HCO3 ACT 5.8 mmol/L (22.0-26.0); BG METHEMOGLOBIN 0.3 % (0.0-1.5); BG OXYHEMOGLOBIN 93.3 % (94.0-97.0); BG PCO2 31.2 mmHg (35.0-45.0); BG SAMPLE SITE RIGHT RADIAL; BG TOTAL HEMOGLOBIN 8.4 g/dL (12.0-18.0); BG VENT MODE VENT - AC
[2021-06-15] VITALS (57 sets, daily range): BP systolic 60–97; BP diastolic 26–49
[2021-06-15] MEDS ORDERED: SODIUM BICARBONATE 8.4% 1 MEQ/ML 50ML SYR IV SCH
[2021-06-15] MEDS: METOCLOPRAMIDE HCL 10MG/2ML VIAL IV SCH ×3 (00:03→09:21)
[2021-06-15] MEDS: IPRATROPIUM/ALBUTEROL 0.5-3(2.5)MG/3ML NEB HHN SCH ×4 (00:37→11:41)
[2021-06-15] MEDS: ACETYLCYSTEINE 100MG/ML 10% VIAL 4ML INH SCH ×2 (00:37→08:29)
[2021-06-15] MEDS: EPINEPHRINE 10 MG in SODIUM CHLORIDE 0.9% 240 ML IV PRN ×7 (00:48→12:29)
[2021-06-15] MEDS: METRONIDAZOLE 500 MG PREMIX 100 ML IV SCH ×2 (02:18→10:08)
[2021-06-15] MEDS: PHENYLEPHRINE 100 MG in DEXT 5% WATER 240 ML IV PRN ×3 (02:55→10:55)
[2021-06-15] MEDS: DOPAMINE 400MG/250ML PREMIX 250 ML IV PRN ×3 (02:58→10:56)
[2021-06-15] MEDS: BLOOD SUGAR DIAGNOSTIC STRIP TEST SCH ×4 (04:00→12:07)
[2021-06-15] MEDS: MIDAZOLAM HCL 100 MG in SODIUM CHLORIDE 0.9% 80 ML IV PRN (04:08)
[2021-06-15] MEDS: VASOPRESSIN 20 UNIT in SODIUM CHLORIDE 0.9% 99 ML IV PRN (05:46)
[2021-06-15] MEDS: NOREPINEPHRINE 32 MG in DEXT 5% WATER 218 ML IV PRN ×2 (05:49→12:10)
[2021-06-15 06:31] LABS: CHLORIDE 99 mEq/L (98-107)
[2021-06-15 06:32] LABS: HEMATOCRIT. 25.6 % (42.0-52.0); HEMOGLOBIN. 7.6 g/dL (14.0-18.0); MEAN CORPUSCULAR HEMOGLOBIN 29.5 pg (28.0-32.0); MEAN CORPUSCULAR VOLUME 99.3 fL (80.0-94.0); MEAN PLATELET VOLUME 6.6 fl (7.4-10.4); RED BLOOD CELL COUNT 2.58 mill/uL (4.7-6.1); RED CELL DISTRIBUTION WIDTH 19.8 % (11.6-14.6)
[2021-06-15 06:38] LABS: PHOSPHORUS 3.8 mg/dL (2.5-4.9)
[2021-06-15 06:46] LABS: PLATELET 21 x1000/uL (130-400)
[2021-06-15] MEDS: SODIUM BICARBONATE 150 MEQ in DEXTROSE 5% WATER 1,000 ML IV SCH ×2 (07:26→13:08)
[2021-06-15 07:58] LABS: BG BASE EXCESS -28.6 mmol/L (-2.0-2.0); BG CARBOXYHEMOGLOBIN 0.5 % (0.5-1.5); BG DEOXYHEMOGLOBIN 15.5 % (0.0-5.0); BG FRACTION INSPIRED OXYGEN 80; BG HCO3 ACT 5.2 mmol/L (22.0-26.0); BG METHEMOGLOBIN 0.4 % (0.0-1.5); BG OXYGEN SATURATION 84.4 % (92.0-98.5); BG OXYHEMOGLOBIN 83.6 % (94.0-97.0); BG PCO2 42.5 mmHg (35.0-45.0); BG PH 6.703 (7.350-7.450); BG SAMPLE SITE RIGHT RADIAL; BG TOTAL HEMOGLOBIN 6.5 g/dL (12.0-18.0); BG VENT MODE VENT - AC
[2021-06-15] MEDS ORDERED: SODIUM BICARBONATE 8.4% 1 MEQ/ML 50ML SYR IV NR (08:15)
[2021-06-15] MEDS: METOPROLOL TARTRATE 25MG TABLET PO SCH (09:00)
[2021-06-15] MEDS: PANTOPRAZOLE SODIUM 40 MG/VIAL IV SCH (09:21)
[2021-06-15] MEDS: ASCORBIC ACID 500 MG TABLET PO SCH (09:22)
[2021-06-15] MEDS: ZINC SULFATE 220 MG ( 50 ) CAPSULE PO SCH (09:22)
[2021-06-15] MEDS: FERROUS SULFATE 325MG TABLET PO SCH ×2 (09:22→13:07)
[2021-06-15] MEDS: CEFEPIME 2,000 MG in DEXT 5% WATER 100 ML IV SCH (09:23)
[2021-06-15] MEDS: KCL 20MEQ/100ML PREMIX 100 ML IV SCH ×2 (09:48→12:07)
[2021-06-15 10:20] LABS: NUCLEATED RED BLOOD CELLS 4 /100 WBC
[2021-06-15] MEDS ORDERED: SODIUM BICARBONATE 8.4% 1 MEQ/ML 50ML SYR IV ONE (10:20)
[2021-06-15] MEDS ORDERED: EPINEPHRINE 0.1MG/ML (1:10,000) 10ML SYR ONE (10:20)
[2021-06-15 10:22] LABS: PLATELET ESTIMATE MARKEDLY DECREASED
[2021-06-15] MEDS ORDERED: PHENYLEPHRINE 100 MG in DEXT 5% WATER 240 ML IV PRN (12:00)
[2021-06-15] MEDS ORDERED: AZITHROMYCIN 500 MG in DEXT 5% WATER 250 ML IV SCH (13:00)
[2021-06-15] MEDS: DEXT 10% WATER 1,000 ML IV SCH (13:24)
== END 2021-06-15 14:25 | DRG 720 ==
LOC: ER 01:25 → 3WST 05:30 → ENRESERV 12:31 → 7EST 05-21 16:00 → 6EST 06-01 11:11 → 5EST 06-08 21:28 → CVICU 06-11 15:54
PROVIDERS: ADMIT Internal Medicine; ATTEND Internal Medicine
PROC: 30233N1 Transfusion of Nonautologous Red Blood Cells into Peripheral Vein, Percutaneous Approach (ICD-10-PCS; 2021-05-25)
PROC: 0JB70ZZ Excision of Back Subcutaneous Tissue and Fascia, Open Approach (ICD-10-PCS; principal; 2021-06-08)
PROC: 02HV33Z Insertion of Infusion Device into Superior Vena Cava, Percutaneous Approach (ICD-10-PCS; 2021-06-08)
PROC: B518ZZA Fluoroscopy of Superior Vena Cava, Guidance (ICD-10-PCS; 2021-06-08)
PROC: B548ZZA Ultrasonography of Superior Vena Cava, Guidance (ICD-10-PCS; 2021-06-08)
PROC: 5A1945Z Respiratory Ventilation, 24-96 Consecutive Hours (ICD-10-PCS; 2021-06-11)
PROC: 06H03DZ Insertion of Intraluminal Device into Inferior Vena Cava, Percutaneous Approach (ICD-10-PCS; 2021-06-11)
PROC: 5A09357 Assistance with Respiratory Ventilation, Less than 24 Consecutive Hours, Continuous Positive Airway Pressure (ICD-10-PCS; 2021-06-11)
PROC: 0BH17EZ Insertion of Endotracheal Airway into Trachea, Via Natural or Artificial Opening (ICD-10-PCS; 2021-06-11)
PROC: 02HV33Z Insertion of Infusion Device into Superior Vena Cava, Percutaneous Approach (ICD-10-PCS; 2021-06-14)
PROC: 5A1D70Z Performance of Urinary Filtration, Intermittent, Less than 6 Hours Per Day (ICD-10-PCS; 2021-06-14)
PROC: 5A12012 Performance of Cardiac Output, Single, Manual (ICD-10-PCS; 2021-06-15)
PROC: 5A1D70Z Performance of Urinary Filtration, Intermittent, Less than 6 Hours Per Day (ICD-10-PCS; 2021-06-15)
DX: A41.59 Other Gram-negative sepsis (principal); J96.01 Acute respiratory failure with hypoxia; N17.0 Acute kidney failure with tubular necrosis; R65.21 Severe sepsis with septic shock; J69.0 Pneumonitis due to inhalation of food and vomit; G93.41 Metabolic encephalopathy; L89.154 Pressure ulcer of sacral region, stage 4; K56.7 Ileus, unspecified; E43 Unspecified severe protein-calorie malnutrition; D69.6 Thrombocytopenia, unspecified; E11.649 Type 2 diabetes mellitus with hypoglycemia without coma; R18.8 Other ascites; E86.0 Dehydration; N39.0 Urinary tract infection, site not specified; D64.9 Anemia, unspecified; I82.423 Acute embolism and thrombosis of iliac vein, bilateral; I82.413 Acute embolism and thrombosis of femoral vein, bilateral; E83.39 Other disorders of phosphorus metabolism; K22.89 Other specified disease of esophagus; Z20.822 Contact with and (suspected) exposure to COVID-19; K80.20 Calculus of gallbladder without cholecystitis without obstruction; E83.42 Hypomagnesemia; E87.6 Hypokalemia; K52.9 Noninfective gastroenteritis and colitis, unspecified; L02.31 Cutaneous abscess of buttock; I10 Essential (primary) hypertension; E87.70 Fluid overload, unspecified; Z95.828 Presence of other vascular implants and grafts; Z86.718 Personal history of other venous thrombosis and embolism; Z74.01 Bed confinement status; Z82.49 Family history of ischemic heart disease and other diseases of the circulatory system; Z86.73 Personal history of transient ischemic attack (TIA), and cerebral infarction without residual deficits; Z68.30 Body mass index [BMI] 30.0-30.9, adult; R00.0 Tachycardia, unspecified; B96.1 Klebsiella pneumoniae [K. pneumoniae] as the cause of diseases classified elsewhere; B96.6 Bacteroides fragilis [B. fragilis] as the cause of diseases classified elsewhere
CPT/HCPCS: 36415; 36556; 36573; 36600; 37191; 71045; 71275; 74018; 74178; 76770; 76881; 76937; 80048; 80053; 80202; 81003; 82040; 82270; 82375; 82550; 82805; 82962; 83540; 83550; 83605; 83735; 84100; 84134; 84145; 84443; 84478; 85014; 85018; 85025; 85027; 85049; 85384; 86705; 86709; 86803; 86850; 86900; 86920; 87070; 87075; 87077; 87186; 87340; 87426; 88305; 92610; 92950; 93005; 93306; 94003; 94640; 94660; 97110; 97162; 97166; 97530; 97535; 99291; A6261; C1725; C1752; C1880; C9113; J0330; J0456; J0690; J0692; J0696; J1100; J1265; J1650; J1940; J1956; J2250; J2370; J2405; J2543; J2704; J2765; J3010; J3370; J3475; J3480; J3490; J7030; J7040; J7050; J7060; J7070; J7608; P9016; P9047; Q9963; Q9967; A5200